=== PATIENT | male | born 1965 ===

== ENCOUNTER 2024-12-20 08:30 | Day surgery (SDC) | payer OTHER ==
[2024-12-12 14:48] LABS: BASO % 0.6 % (0.1-1.2); EOS # 0.06 (0.04-0.54); EOS % 0.7 % (0.7-7.0); LYMPH # 1.33 (1.18-3.74); LYMPH % 14.8 % (19.3-53.1); MEAN PLATELET VOLUME 9.70 fl (9.4-12.4); MONO # 0.72 (0.24-0.82); MONO % 8.0 % (4.7-12.5); NEUT # 6.83 (1.56-6.13); NEUT % 75.7 % (34.0-71.1); RED CELL DISTRIBUTION WIDTH 12.9 % (11.6-14.4)
[2024-12-12 15:29] LABS: BUN CREA RATIO 13.0 (7.0-25.0); CREATININE SERUM 1.24 mg/dL (0.70-1.30); GFR 59.46; GLUCOSE FASTING 107.0 mg/dL (65-100); OSMOLALITY SERUM 287.0 MOSM/KG (275-295)
[2024-12-20] MEDS ORDERED: MIDAZOLAM HCL 2 MG/2 ML VIAL IV ONE ×2 (11:15→11:30)
[2024-12-20] MEDS ORDERED: fentaNYL CITRATE 50 MCG/ML AMPUL IV ONE (11:15)
[2024-12-20] MEDS ORDERED: DIPHENHYDRAMINE HCL 50 MG/ML VIAL 1ML IV ONE (11:30)
== END 2024-12-20 12:45 | disposition home or self-care (01) ==
LOC: AMB-ENDOS 08:30 → EDBD 14:30 → AMB-ENDOS 14:30
PROVIDERS: ATTEND Surgery
DX: K57.30 Diverticulosis of large intestine without perforation or abscess without bleeding (principal)